=== PATIENT | male | born 1990 | race American Indian/Alaskan Native ===

== ENCOUNTER 2016-10-08 23:49 | Emergency (ER) | payer OTHER ==
[2016-10-09 01:24] VITALS: BP 127/88
--- NOTE | 2016-10-09 04:05 | XRay Report ---
FINAL REPORT EXAM: XR HAND 3+V RT HISTORY: injury TECHNIQUE: 3 views of right hand. PRIORS: None. FINDINGS: Curvilinear lucency noted in probable triquetrum, with significant displacement. Mild overlying soft tissue edema. No other apparent fracture or dislocation. Remainder of osseous and soft tissue structures grossly unremarkable. IMPRESSION: 1. Findings suspicious for posttraumatic change and fracture involving right triquetrum. Correlation with point tenderness and radiographic followup in 3-5 days may help in further evaluation, as clinically indicated.
--- NOTE | 2016-10-09 04:06 | XRay Report ---
FINAL REPORT EXAM: XR FOREARM RT HISTORY: injury TECHNIQUE: Frontal and lateral views of right forearm. PRIORS: Right hand radiographs of same date. FINDINGS: Small, curvilinear lucency projected over probable triquetrum again noted. No other apparent fracture or dislocation. Soft tissues grossly unremarkable. IMPRESSION: 1. Right forearm grossly intact.
== END 2016-10-09 01:51 | disposition left against medical advice (07) ==
LOC: ED 23:49
DX: Z04.1 Encounter for examination and observation following transport accident (principal); Z53.21 Procedure and treatment not carried out due to patient leaving prior to being seen by health care provider
CPT/HCPCS: 93005; 93010